=== PATIENT | male | born 1980 | race American Indian/Alaskan Native ===

== ENCOUNTER 2018-10-31 16:03 | Emergency (ER) | payer MEDICAID ==
[2018-10-31 16:16] VITALS: BMI 27.3
[2018-10-31 16:19] VITALS: PULSE 80; RESP 18; TEMP 98.4; O2SAT 97
[2018-10-31] MEDS ORDERED: Tobramycin 0.3% OPHT SOLN OS STA (18:01)
--- NOTE | 2018-10-31 18:05 | ED PDOC ---
Arrival/HPI - General Chief Complaint: Eye Problem Time Seen by Provider: 10/31/18 17:18 Historian: Patient - History of Present Illness Narrative History of Present Illness (Text): 10/31/18 18:02 38yo male with no past medical history who present with complaint of mild right eye pain described as "foreign body sensation" after trauma at work at 1530. States a wire scratched his right eye (although triage notes left) when he bent down to do something at work. +tearing. Denies photophobia, visual change, any other complaint. Patient notes he is up to date with his TD vaccination. Past Medical History - Provider Review Nursing Documentation Reviewed: Yes - Infectious Disease Hx of Infectious Diseases: None - Psychiatric Hx Substance Use: No - Surgical History Hx Orthopedic Surgery: Yes Other/Comment: ankle; shoulder sx - Anesthesia Hx Anesthesia: Yes Hx Anesthesia Reactions: No Hx Malignant Hyperthermia: No Family/Social History - Physician Review Nursing Documentation Reviewed: Yes Family/Social History: Unknown Family HX Smoking Status: Heavy Smoker > 10 Cigarettes Daily Hx Alcohol Use: Yes Frequency of alcohol use: Socially Hx Substance Use: No Allergies/Home Meds Allergies/Adverse Reactions: Allergies Tetracyclines Allergy (Verified 10/31/18 16:16) RASH Home Medications: Home Meds Medication Instructions Recorded Confirmed No Known Home Med 10/31/18 10/31/18 Review of Systems - Physician Review All systems were reviewed & negative as marked: Yes - Review of Systems Constitutional: Normal Eyes: Eye Pain (Right eye) ENT: Normal Respiratory: Normal Cardiovascular: Normal Gastrointestinal: Normal Genitourinary Male: Normal Musculoskeletal: Normal Skin: Normal Neurological: Normal Endocrine: Normal Hemo/Lymphatic: Normal Psychiatric: Normal Physical Exam Vital Signs Reviewed: Yes Vital Signs Temp Pulse Resp BP Pulse Ox 10/31/18 16:19 98.4 F 80 18 118/79 97 Temperature: Afebrile Blood Pressure: Normal Pulse: Regular Respiratory Rate: Normal Appearance: Positive for: Well-Appearing, Non-Toxic, Comfortable Pain Distress: None Mental Status: Positive for: Alert and Oriented X 3 - Systems Exam Head: Present: Atraumatic, Normocephalic Pupils: Present: PERRL Extroacular Muscles: Present: EOMI Conjunctiva: Present: Normal, Other (Pinpoint florescin uptake noted on central right cornea) Mouth: Present: Moist Mucous Membranes Neck: Present: Normal Range of Motion Respiratory/Chest: Present: Clear to Auscultation, Good Air Exchange. No: Respiratory Distress, Accessory Muscle Use Cardiovascular: Present: Regular Rate and Rhythm, Normal S1, S2. No: Murmurs Abdomen: No: Tenderness, Distention, Peritoneal Signs Back: Present: Normal Inspection Upper Extremity: Present: Normal Inspection. No: Cyanosis, Edema Lower Extremity: Present: Normal Inspection. No: Edema Neurological: Present: GCS=15, CN II-XII Intact, Speech Normal Skin: Present: Warm, Dry, Normal Color. No: Rashes Psychiatric: Present: Alert, Oriented x 3, Normal Insight, Normal Concentration Disposition/Present on Arrival - Present on Arrival Any Indicators Present on Arrival: No History of DVT/PE: No History of Uncontrolled Diabetes: No Urinary Catheter: No History of Decub. Ulcer: No History Surgical Site Infection Following: None - Disposition Have Diagnosis and Disposition been Completed?: Yes Diagnosis: Corneal abrasion Disposition: HOME/ ROUTINE Disposition Time: 18:10 Patient Plan: Discharge Condition: STABLE Discharge Instructions (ExitCare): Corneal Abrasion Additional Instructions: Follow up with contact person Return to emergency department for any new or worsening symptoms Referrals: Parrish Florence MD [Staff Provider] - Follow up with primary Forms: [facility] ([place]ian), WORK NOTE
[2018-10-31 19:28] VITALS: BP 114/79
== END 2018-10-31 18:40 | disposition home or self-care (01) ==
LOC: ED 16:03
DX: S05.01XA Injury of conjunctiva and corneal abrasion without foreign body, right eye, initial encounter (principal); X58.XXXA Exposure to other specified factors, initial encounter